=== PATIENT | female | born 1975 | race Caucasian/White ===

== ENCOUNTER → 2016-09-09 | Outpatient (CLI) | payer BC ==
--- NOTE | 2016-09-09 12:01 | RADRPT ---
PROCEDURE: US Lower extremity Venous. CLINICAL INDICATION: Left leg edema, varicose veins TECHNIQUE: Multiple sonographic images of the left lower extremity deep venous system was obtained utilizing grayscale, color-flow, compressive sonography and doppler imaging with augmentation. The images were reviewed on a PACS workstation. COMPARISON: None. FINDINGS: There is normal compressibility and flow within the left common femoral, femoral, posterior tibial, peroneal and popliteal veins. RPTAT: AA IMPRESSION: No sonographic evidence for deep venous thrombosis. .Etienne Pérez MD, MD Date Time Electronically viewed and signed by .Etienne Pérez MD, on 09/09/2016 12:00 .S/
== END | disposition home or self-care (01) ==
LOC: VAS 10:53
PROVIDERS: ATTEND Internal Medicine
DX: I83.92 Asymptomatic varicose veins of left lower extremity (principal); R60.0 Localized edema
CPT/HCPCS: 93971